=== PATIENT | female | born 1970 ===

== ENCOUNTER 2022-11-28 07:48 | Outpatient (CLI) | payer OTHER ==
[~2022-11-28 07:48] MED LIST: ALVERT PO; CIPRO500 MG PO; CLARITIN10 M1 PO; DOCUSATE SODIU100 MG PO; FERROUS SU324 ( 65 ) PO; LEVSIN/SL0.125 MG PO; OXYC1TAB9 PO
== END 2022-11-28 07:50 | disposition home or self-care (01) ==
LOC: SONOGRAMA 07:48
PROVIDERS: ATTEND Pathology Anatomic Pathology & Clinical Pathology
DX: D34 Benign neoplasm of thyroid gland (principal); E04.8 Other specified nontoxic goiter; E06.5 Other chronic thyroiditis; E04.2 Nontoxic multinodular goiter